=== PATIENT | female | born 1975 | race Caucasian/White ===

== ENCOUNTER 2017-11-13 11:44 | Inpatient (IN) | payer BC ==
[2017-11-13] MEDS: DUONEB 0.5 MG/3 MG NEB SCH ×2 (14:20→17:26)
[2017-11-13 14:39] LABS: BASOPHILS # (AUTO) 0.1 X10^3/uL (0.0-0.1); BASOPHILS % (AUTO) 0.8 % (0.2-1.0); EOSINOPHILS # (AUTO) 0.1 x10^3/uL (0.0-0.2); EOSINOPHILS % (AUTO) 0.4 % (0.9-2.9); HEMATOCRIT 41.7 % (36.0-47.0); HEMOGLOBIN 14.3 g/dL (12.0-16.0); LYMPHOCYTES # (AUTO) 3.2 X10^3/uL (1.3-2.9); LYMPHOCYTES % (AUTO) 19.5 % (21.0-51.0); MEAN CORPUSCULAR HEMOGLOBIN 30.6 pg (27.0-34.0); MEAN CORPUSCULAR HGB CONC 34.3 g/dL (33.0-35.0); MEAN CORPUSCULAR VOLUME 89.2 fL (80.0-100.0); MEAN PLATELET VOLUME 9.2 fL (7.4-11.0); MONOCYTES # (AUTO) 0.9 x10^3/uL (0.3-0.8); MONOCYTES % (AUTO) 5.5 % (0.0-13.0); NEUTROPHILS % (AUTO) 73.8 % (42.0-75.0); PLATELET COUNT 254 X10^3/uL (150.0-450.0); RED BLOOD COUNT 4.68 X10^6/uL (3.5-5.4); RED CELL DISTRIBUTION WIDTH 13.4 % (11.6-16.5); WHITE BLOOD COUNT 16.3 X10^3/uL (3.6-10.0)
[2017-11-13 14:50] VITALS: BMI 32.1
[2017-11-13 14:59] LABS: ALANINE AMINOTRANSFERASE 39 Units/L (12-78); ALBUMIN 3.5 g/dL (3.4-5.0); ALKALINE PHOSPHATASE 64 Units/L (46-116); ASPARTATE AMINO TRANSFERASE 19 Units/L (15-37); BLOOD UREA NITROGEN 12 mg/dL (7-18); CALCIUM 8.8 mg/dL (8.5-10.1); CARBON DIOXIDE 24.3 mmol/L (21-32); CHLORIDE 107 mmol/L (98-107); COR NA(FOR HYPERGLY) 144 mmol/L (136-145); CREATININE 1.13 mg/dL (0.55-1.02); SODIUM 143 mmol/L (136-145); TOTAL PROTEIN 8.2 g/dL (6.4-8.2); eGFR BLACK RACES > 60 (>60); eGFR NON BLACK RACES 56 (>60)
[2017-11-13] MEDS ORDERED: ZOFRAN INJ 4 MG VIAL ONE (15:53)
[2017-11-13] MEDS: SOLU-Medrol 125 MG VIAL IVP SCH ×3 (16:00→21:02)
--- NOTE | 2017-11-13 16:38 | RAD ---
HISTORY: Asthma attack Study: Portable upright AP chest Comparison: None Findings: The trachea is midline. The cardiac silhouette is unremarkable. The lungs are clear without focal i nfiltrate or effusion. The bony thorax is unremarkable. IMPRESSION: 1. No acute cardiopulmonary disease. Reported By:
[2017-11-13] MEDS: ZITHROMAX INJ 500 MG VIAL 500 MG in NS 250 ML IV 250 ML IV SCH (17:16)
[2017-11-13] MEDS ORDERED: ZOFRAN INJ 4 MG VIAL IVP PRN (17:18)
[2017-11-13] MEDS ORDERED: AMBIEN PO PRN (22:04)
[2017-11-13 22:38] LABS: FREE T4 (FREE THYROXINE) 1.15 ng/dL (0.76-1.46); TSH (3RD GENERATION) 0.538 uIU/mL (0.358-3.74)
[2017-11-14] MEDS: DUONEB 0.5 MG/3 MG NEB SCH ×3 (00:30→11:15)
[2017-11-14] MEDS: SOLU-Medrol 125 MG VIAL IVP SCH ×3 (05:49→21:27)
[2017-11-14] MEDS: NORCO 5/325 MG TAB PO PRN ×3 (05:55→18:12)
[2017-11-14 06:31] LABS: BLOOD UREA NITROGEN 13 mg/dL (7-18); CALCIUM 8.8 mg/dL (8.5-10.1); CARBON DIOXIDE 22.7 mmol/L (21-32); CHLORIDE 108 mmol/L (98-107); COR NA(FOR HYPERGLY) 144 mmol/L (136-145); CREATININE 0.89 mg/dL (0.55-1.02); SODIUM 143 mmol/L (136-145); eGFR BLACK RACES > 60 (>60); eGFR NON BLACK RACES > 60 (>60)
[2017-11-14 06:39] LABS: BASOPHILS % (AUTO) 0.1 % (0.2-1.0); HEMATOCRIT 41.6 % (36.0-47.0); HEMOGLOBIN 14.5 g/dL (12.0-16.0); LYMPHOCYTES # (AUTO) 1.3 X10^3/uL (1.3-2.9); LYMPHOCYTES % (AUTO) 7.5 % (21.0-51.0); MEAN CORPUSCULAR HGB CONC 34.8 g/dL (33.0-35.0); MEAN PLATELET VOLUME 9.5 fL (7.4-11.0); MONOCYTES # (AUTO) 0.2 x10^3/uL (0.3-0.8); MONOCYTES % (AUTO) 1.3 % (0.0-13.0); NEUTROPHILS # (AUTO) 16.2 x10^3/uL (2.2-4.8); NEUTROPHILS % (AUTO) 91.1 % (42.0-75.0); PLATELET COUNT 255 X10^3/uL (150.0-450.0); RED BLOOD COUNT 4.67 X10^6/uL (3.5-5.4); RED CELL DISTRIBUTION WIDTH 13.2 % (11.6-16.5); WHITE BLOOD COUNT 17.8 X10^3/uL (3.6-10.0)
[2017-11-14 07:33] LABS: PLATELET MORPHOLOGY COMMENT NORMAL (NORMAL)
[2017-11-14] MEDS: ZITHROMAX INJ 500 MG VIAL 500 MG in NS 250 ML IV 250 ML IV SCH (08:57)
[2017-11-14] MEDS: TUSSIONEX PENNKINETIC SUSP PO PRN ×2 (11:09→23:29)
[2017-11-14] MEDS: PHENERGAN INJ 25 MG IVP PRN ×2 (13:47→21:27)
--- NOTE | 2017-11-14 14:49 | DR.H&P ---
H&P - History & Physical for Day of: H&P Date: 11/13/17 - Chief Complaint Chief Complaint: SOB, WHEEZING - Allergies Allergies/Adverse Reactions: Allergies Allergy/AdvReac Type Severity Reaction Status Date / Time levofloxacin [From Levaquin] Allergy Verified 11/13/17 23:34 - History of Present Illness History of Present Illness: 42 WF DIRECT ADMIT FROM DR COSME OFFICE WITH ASTHMA WITH EXACERBATION FAILED OUTPT TREATMENT. PT STATES SHE IS NORMALLY HEALTHY NO PMH, STARTED WITH COUGH WHEEZING AND SOB X 2 DAYS. CONTINUES TO WORSEN, PT CO LOW GRADE FEVER. HAD IM ROCEPHIN AND STEROIDS OP - Past Medical History Past Medical History: Kidney Stones - Past Surgical History Surgical History: Cholecystectomy, Hysterectomy, Ortho Surgery - Family History Family Medical History: Cancer, [place], Hypertension - Social History Type of Tobacco Use: None Alcohol Use: Occasionally Drug Use: None - Medications Home Medications: NK [NK] 11/13/17 [History Confirmed 11/13/17] - Review of Systems Constitutional: Fever, Weakness Eyes: No Symptoms Reported, Vision Change Respiratory: Cough, Shortness of Breath, SOB with Excertion, Wheezing Cardiovascular: No Symptoms Reported Gastrointestinal: Nausea Genitourinary: No Symptoms Reported Musculoskeletal: No Symptoms Reported Skin: No Symptoms Reported Neurological: No Symptoms Reported - Physical Exam Vital Signs: Temperature 98.4 F Pulse Rate [Radial] 114 Pulse Rate 93 Respiratory Rate 24 Blood Pressure [Left Arm] 119/58 Blood Pressure 130/71 O2 Sat by Pulse Oximetry 94 Oriented: Normal Eyes: Normal Ear: Normal Nose: Normal Throat: Normal Respiratory: Wheezes Throughout Cardiovascular: Tachycardia : Normal Auscultation: Bowel Sounds: Normal Palpation: Normal Tenderness: Normal Musculoskeletal: Back:Lumbar Affect: Anxious Speech Pattern: Clear, Appropriate - Assessment/Plan (1) Acute bronchitis Status: Acute Plan: ADMIT, RESP THEARPY, IV ATBX IV STEROIDS. SUPPLEMENTAL O2, REPEAT AM LABS
[2017-11-14] MEDS: XOPENEX 1.25 MG/3 ML NEBULE NEB SCH ×3 (15:44→21:47)
[2017-11-14] MEDS ORDERED: PROVENTIL NEB TX 0.083% 2.5MG/ 3ML NEB PRN (15:45)
[2017-11-14] MEDS ORDERED: NS 100 ML IV 100 ML IV ONE (19:20)
[2017-11-14] MEDS: PULMICORT NEB TX 0.5 MG NEB SCH (21:47)
--- NOTE | 2017-11-14 22:16 | CT ---
HISTORY: Shortness of breath, respiratory distress, cough, and wheezing. Study: CT chest with contrast Comparison: Chest x-ray dated November 13, [address] abdomen/pelvis dated October 13, 2016. Technique: Multiple axial images of the chest were obtained from the thoracic inlet to the upper abdo men after the administration of IV contrast. MIP images were obtained. Dose reduction techniques incl uding Automated Exposure Control (AEC) and adjustment of mA and kV were utilized. Findings: The mediastinum does not demonstrate significant pathological lymphadenopathy. There is no paracardi al effusion observed. The thoracic aorta is normal in its contour without evidence for aneurysmal di latation. The central pulmonary arterial system does not demonstrate central filling defects to sugg est pulmonary emboli. No obvious pulmonary nodule, mass, pleural effusion, focal consolidation, or pneumothorax. The gallbl adder is surgically absent. Prominent right extrarenal pelvis versus moderate hydronephrosis. No obvi ous obstructing stone. Remaining upper abdominal structures are unremarkable. The osseous structures appear normal for age. IMPRESSION: 1. No CT evidence of acute thoracic pathology or pulmonary embolus. 2. Prominent right extrarenal pelvis versus moderate hydronephrosis. No obvious obstructing stone. Re commend clinical/laboratory correlation. Reported By:
[2017-11-15] MEDS: NORCO 5/325 MG TAB PO PRN ×2 (02:23→09:47)
[2017-11-15] MEDS: SOLU-Medrol 125 MG VIAL IVP SCH ×2 (05:06→14:17)
[2017-11-15] MEDS: PHENERGAN INJ 25 MG IVP PRN ×2 (05:11→11:22)
[2017-11-15 06:01] LABS: BASOPHILS % (AUTO) 0.1 % (0.2-1.0); HEMATOCRIT 43.5 % (36.0-47.0); HEMOGLOBIN 14.7 g/dL (12.0-16.0); LYMPHOCYTES # (AUTO) 1.1 X10^3/uL (1.3-2.9); LYMPHOCYTES % (AUTO) 4.7 % (21.0-51.0); MEAN CORPUSCULAR HEMOGLOBIN 30.5 pg (27.0-34.0); MEAN CORPUSCULAR HGB CONC 33.8 g/dL (33.0-35.0); MEAN CORPUSCULAR VOLUME 90.3 fL (80.0-100.0); MEAN PLATELET VOLUME 10.1 fL (7.4-11.0); MONOCYTES # (AUTO) 0.4 x10^3/uL (0.3-0.8); MONOCYTES % (AUTO) 1.9 % (0.0-13.0); NEUTROPHILS # (AUTO) 21.1 x10^3/uL (2.2-4.8); NEUTROPHILS % (AUTO) 93.3 % (42.0-75.0); PLATELET COUNT 205 X10^3/uL (150.0-450.0); RED BLOOD COUNT 4.82 X10^6/uL (3.5-5.4); RED CELL DISTRIBUTION WIDTH 13.6 % (11.6-16.5); WHITE BLOOD COUNT 22.6 X10^3/uL (3.6-10.0)
[2017-11-15 06:11] LABS: PLATELET MORPHOLOGY COMMENT NORMAL (NORMAL)
--- NOTE | 2017-11-15 07:10 | RAD ---
New Examination: Portable AP chest History: SOB Comparison 11/13/2017 Findings: Continued normal heart size with essentially clear lungs. Minimal fibrosis at the left cost ophrenic angle. No evidence for pneumonia, pulmonary edema or large pleural effusion. Impression: No acute findings. She Reported By:
[2017-11-15] MEDS: XOPENEX 1.25 MG/3 ML NEBULE NEB SCH ×2 (09:12→12:28)
[2017-11-15] MEDS: PULMICORT NEB TX 0.5 MG NEB SCH (09:12)
[2017-11-15 09:20] LABS: ALANINE AMINOTRANSFERASE 71 Units/L (12-78); ALBUMIN 3.1 g/dL (3.4-5.0); ALKALINE PHOSPHATASE 52 Units/L (46-116); ASPARTATE AMINO TRANSFERASE 50 Units/L (15-37); BLOOD UREA NITROGEN 11 mg/dL (7-18); CALCIUM 8.6 mg/dL (8.5-10.1); CARBON DIOXIDE 27.5 mmol/L (21-32); CHLORIDE 107 mmol/L (98-107); COR CA(FOR HYPOALB) 9.3 mg/dL (8.5-10.1); COR NA(FOR HYPERGLY) 143 mmol/L (136-145); CREATININE 0.82 mg/dL (0.55-1.02); SODIUM 142 mmol/L (136-145); TOTAL PROTEIN 7.5 g/dL (6.4-8.2); eGFR BLACK RACES > 60 (>60); eGFR NON BLACK RACES > 60 (>60)
[2017-11-15] MEDS: ZITHROMAX INJ 500 MG VIAL 500 MG in NS 250 ML IV 250 ML IV SCH (09:35)
[2017-11-15] MEDS ORDERED: NS 500 ML IV 500 ML IV ONE (11:21)
[2017-11-15 12:28] VITALS: BP 155/65
[2017-11-15] MEDS ORDERED: DIFLUCAN PO ONE (15:58)
[2017-11-15] MEDS ORDERED: DIFLUCAN ONE (16:01)
--- NOTE | 2017-11-17 22:21 | PCM.DCPLAN ---
Discharge Summary - Admission Date Date of Admission: 11/13/17 - Discharge Date Discharge Date: 11/15/17 - Admission Diagnoses (1) Acute bronchitis Status: Acute (2) Hydronephrosis of right kidney Status: Acute - Discharge Diagnoses Discharge Diagnosis: SAME ADMISSION DIAGNOSIS - Discharge Medications Discharge Medications: NK [NK] 11/13/17 [History] - Hospital Course Vital Signs: Temperature 97.3 F Pulse Rate [Radial] 88 Pulse Rate 71 Respiratory Rate 20 Blood Pressure [Left Arm] 155/65 Blood Pressure 130/71 O2 Sat by Pulse Oximetry 93 Latest Lab Results: Laboratory Last Values WBC 22.6 X10^3/uL (3.6-10.0) H 11/15/17 04:58 RBC 4.82 X10^6/uL (3.5-5.4) 11/15/17 04:58 Hgb 14.7 g/dL (12.0-16.0) 11/15/17 04:58 Hct 43.5 % (36.0-47.0) 11/15/17 04:58 MCV 90.3 fL (80.0-100.0) 11/15/17 04:58 MCH 30.5 pg (27.0-34.0) 11/15/17 04:58 MCHC 33.8 g/dL (33.0-35.0) 11/15/17 04:58 RDW 13.6 % (11.6-16.5) 11/15/17 04:58 Plt Count 205 X10^3/uL (150.0-450.0) 11/15/17 04:58 Plt Count Comment Adequate (ADEQUATE) 11/15/17 04:58 MPV 10.1 fL (7.4-11.0) 11/15/17 04:58 Neut % 93.3 % (42.0-75.0) H 11/15/17 04:58 Lymph % 4.7 % (21.0-51.0) L 11/15/17 04:58 Teller % 1.9 % (0.0-13.0) 11/15/17 04:58 Eos % 0.0 % (0.9-2.9) L 11/15/17 04:58 Baso % 0.1 % (0.2-1.0) L 11/15/17 04:58 Neut # 21.1 x10^3/uL (2.2-4.8) H 11/15/17 04:58 Lymph # 1.1 X10^3/uL (1.3-2.9) L 11/15/17 04:58 Teller # 0.4 x10^3/uL (0.3-0.8) 11/15/17 04:58 Eos # 0.0 x10^3/uL (0.0-0.2) 11/15/17 04:58 Baso # 0.0 X10^3/uL (0.0-0.1) 11/15/17 04:58 Absolute Nucleated RBC 0.0 /100WBC 11/15/17 04:58 Total Counted 100 11/15/17 04:58 Neutrophils % (Manual) 94 % (39-76) H 11/15/17 04:58 Lymphocytes % (Manual) 5 % (13-43) L 11/15/17 04:58 Monocytes % (Manual) 1 % (4-9) L 11/15/17 04:58 Plt Morphology Comment Normal (NORMAL) 11/15/17 04:58 RBC Morphology Normal (NORMAL) 11/15/17 04:58 Sodium 142 mmol/L (136-145) 11/15/17 08:50 Corrected Sodium 143 mmol/L (136-145) 11/15/17 08:50 Potassium 3.9 mmol/L (3.5-5.1) 11/15/17 08:50 Chloride 107 mmol/L (98-107) 11/15/17 08:50 Carbon Dioxide 27.5 mmol/L (21-32) 11/15/17 08:50 BUN 11 mg/dL (7-18) 11/15/17 08:50 Creatinine 0.82 mg/dL (0.55-1.02) 11/15/17 08:50 Est GFR (MDRD) Af Amer > 60 (>60) 11/15/17 08:50 Est GFR (MDRD) Non-Af > 60 (>60) 11/15/17 08:50 Glucose 149 mg/dL (65-99) H 11/15/17 08:50 Calcium 8.6 mg/dL (8.5-10.1) 11/15/17 08:50 Corrected Calcium 9.3 mg/dL (8.5-10.1) 11/15/17 08:50 Total Bilirubin 0.30 mg/dL (0.2-1.0) 11/15/17 08:50 AST 50 Units/L (15-37) H 11/15/17 08:50 ALT 71 Units/L (12-78) 11/15/17 08:50 Alkaline Phosphatase 52 Units/L (46-116) 11/15/17 08:50 Total Protein 7.5 g/dL (6.4-8.2) 11/15/17 08:50 Albumin 3.1 g/dL (3.4-5.0) L 11/15/17 08:50 Globulin 4.4 g/dL (2.5-4.5) 11/15/17 08:50 Albumin/Globulin Ratio 0.7 Ratio (1.1-2.1) L 11/15/17 08:50 Free T4 1.15 ng/dL (0.76-1.46) 11/13/17 14:28 TSH 3rd Generation 0.538 uIU/mL (0.358-3.74) 11/13/17 14:28 Influenza Type A (PCR) Negative (NEGATIVE) 11/14/17 13:28 Influenza Type B (PCR) Negative (NEGATIVE) 11/14/17 13:28 Hospital Course: 42 WF DIRECT ADMIT FROM DR COSME OFFICE WITH ASTHMA WITH EXACERBATION FAILED OUTPT TREATMENT. PT STATES SHE IS NORMALLY HEALTHY NO PMH, STARTED WITH COUGH WHEEZING AND SOB X 2 DAYS. CONTINUES TO WORSEN, PT CO LOW GRADE FEVER. HAD IM ROCEPHIN AND STEROIDS OP. PATIENT GIVEN IV STEROIDS, ANTIBIOTICS AND NEB TREATMENTS. CT CHEST DID REVEAL HYDRONEPHROSIS. PATIENT DID HAVE IMPROVEMENT AND DISCHARGED HOME. - Discharge Plan Disposition: HOME, SELF-CARE Condition: Stable - Follow ups/Referrals Follow ups/Referrals: NFD,None [Primary Care Provider] - - Instructions Instructions: Asthma, Adult, [id number]
== END 2017-11-15 16:05 | disposition home or self-care (01) | DRG 202 ==
LOC: OBS 11:44 → UNDOADMOB 11:44 → OBS 13:24 → OBSVTOIN 11-14 13:00
PROVIDERS: ADMIT Internal Medicine; ATTEND Internal Medicine
DX: J45.901 Unspecified asthma with (acute) exacerbation (principal); J20.8 Acute bronchitis due to other specified organisms; R06.02 Shortness of breath; N13.39 Other hydronephrosis
CPT/HCPCS: 36415; 71045; 71260; 80048; 80053; 84439; 84443; 85025; 87040; 87502; 94640; 94760; A4222; G0378; J0456; J2405; J2550; J2930; J7620; J7626